=== PATIENT | female | born 1970 | race Caucasian/White ===

== ENCOUNTER 2018-07-22 10:57 | Outpatient (CLI) | payer OTHER | END 2018-07-22 11:07 | disposition home or self-care (01) | LOC: RAD 10:57 | DX: Z12.31 Encounter for screening mammogram for malignant neoplasm of breast (principal); N64.89 Other specified disorders of breast; M54.2 Cervicalgia; M25.512 Pain in left shoulder; M15.0 Primary generalized (osteo)arthritis ==

== ENCOUNTER 2018-08-13 10:38 | Outpatient (CLI) | payer OTHER | END 2018-08-13 10:45 | disposition home or self-care (01) | LOC: NUCLEAR 10:38 | DX: M81.0 Age-related osteoporosis without current pathological fracture (principal) ==

== ENCOUNTER 2019-04-29 10:20 | Outpatient (CLI) | payer OTHER | END 2019-04-29 10:40 | disposition home or self-care (01) | LOC: MAMO-SONO 10:20 | DX: M25.512 Pain in left shoulder (principal); N64.89 Other specified disorders of breast ==

== ENCOUNTER 2019-06-19 11:47 | Outpatient (CLI) | payer OTHER | END 2019-06-19 11:51 | disposition home or self-care (01) | LOC: RAD 11:47 | DX: M25.551 Pain in right hip (principal); M54.5 Low back pain ==

== ENCOUNTER 2021-03-15 08:31 | Outpatient (CLI) | payer OTHER | END 2021-03-15 08:52 | disposition home or self-care (01) | LOC: MAMO-SONO 08:31 | PROVIDERS: ATTEND Specialist | DX: D25.1 Intramural leiomyoma of uterus (principal); D25.2 Subserosal leiomyoma of uterus; N60.12 Diffuse cystic mastopathy of left breast; N60.11 Diffuse cystic mastopathy of right breast ==